=== PATIENT | female | born 1970 | race Caucasian/White ===

== ENCOUNTER 2016-10-21 09:44 | Emergency (ER) | payer BC ==
[2016-10-21 10:29] VITALS: BP 133/81
--- NOTE | 2016-10-21 10:39 | UC ---
Throat Pain/Nasal Raj HPI - HPI Summary HPI Summary: SORE THROAT X 5 DAYS, + FEVER, CHILLS, NO COUGH, NO NASAL CONGESTION MOTHER POSITIVE FOR BOTH FLU AND STREP - History of Current Complaint Chief Complaint: UCRespiratory Stated Complaint: THROAT COMPLAINT Time Seen by Provider: 10/21/16 10:03 Hx Obtained From: Patient Hx Last Menstrual Period: 09/23/16 ?: No Onset/Duration: Sudden Onset Severity: Moderate Cough: None Associated Signs & Symptoms: Positive: Fever. Negative: Sinus Discomfort, Nasal Discharge, Rash - Allergies/Home Medications Allergies/Adverse Reactions: Allergies Allergy/AdvReac Type Severity Reaction Status Date / Time No Known Allergies Allergy Verified 10/21/16 10:20 PMH/Surg Hx/FS Hx/Imm Hx Cardiovascular History Of: Reports: Hypertension - Surgical History Surgical History: Yes Surgery Procedure, Year, and Place: LUMP REMOVED FROM CHEST - Family History Known Family History: Positive: Hypertension - Social History Alcohol Use: Occasionally Substance Use Type: None Smoking Status (MU): Former Smoker Type: Cigarettes Amount Used/How Often: 1/2 ppd Length of Time of Smoking/Using Tobacco: ~ 25 years Have You Smoked in the Last Year: No When Did the Patient Quit Smoking/Using Tobacco: 2016 Review of Systems Constitutional: Fever, Chills, Fatigue Skin: Negative Eyes: Negative ENT: Sore Throat Respiratory: Negative Cardiovascular: Negative Gastrointestinal: Negative All Other Systems Reviewed And Are Negative: Yes Physical Exam Triage Information Reviewed: Yes Appearance: Well-Appearing, No Pain Distress, Well-Nourished Vital Signs: Initial Vital Signs Temp 99 F 10/21/16 10:12 Pulse 127 10/21/16 10:12 Resp 16 10/21/16 10:12 BP 133/81 10/21/16 10:12 Pulse Ox 97 10/21/16 10:12 Vital Signs Reviewed: Yes Eyes: Positive: Conjunctiva Clear ENT: Positive: Normal ENT inspection, Hearing grossly normal, Pharynx normal, Pharyngeal erythema, TMs normal. Negative: Nasal congestion, Nasal drainage Neck: Positive: Supple, Nontender, No Lymphadenopathy Respiratory: Positive: Chest non-tender, Lungs clear, Normal breath sounds Cardiovascular: Positive: RRR, No Murmur Abdominal Exam: Normal Skin Exam: Normal Throat Pain/Nasal Course/Dx - Differential Dx/Diagnosis Provider Diagnoses: PHARYNGITIS Discharge - Discharge Plan Condition: Stable Disposition: HOME Prescriptions: Amoxicillin (*) [Amoxicillin 875 MG (*)] 875 mg PO BID #20 tab Patient Education Materials: Pharyngitis (ED) Referrals: Patience Lara NP [Primary Care Provider] - If Needed Additional Instructions: NEGATIVE INFLUENZA CONT. WITH REST , INCREASE FLUID, TYLENOL NEEDED FOR PAIN AND FEVER AMOXICILLIN 2 X PER DAY FOR 10 DAYS FOLLOW UP NEEDED
== END 2016-10-21 10:53 | disposition home or self-care (01) ==
LOC: UCCORT 09:44
DX: J02.9 Acute pharyngitis, unspecified (principal); R50.9 Fever, unspecified; Z87.891 Personal history of nicotine dependence
CPT/HCPCS: 87502; 99212; G0463